=== PATIENT | male | born 1955 | race American Indian/Alaskan Native ===

== ENCOUNTER 2021-03-30 18:27 | Emergency (ER) | payer MEDICAID, MEDICARE ==
[~2021-03-30 18:27] MED LIST: EPINEPHrine 1 MG/10 ML SYRINGE ONE
--- NOTE | 2021-03-30 18:35 | Emergency Department Report ---
ED CPR HPI - General Stated Complaint: CA Time Seen by Provider: 03/30/21 18:31 - History of Present Illness Initial Comments: Patient is a 65-year-old male with a past medical history of hypertension liver failure congestive heart failure who is presenting in cardiac arrest. Patient is a resident of a snf and one of the staff members walked past the room and saw him on the ground. Unknown how long the patient has been on the ground. No pulses were found. Paramedics arrived and intubated the patient with a 7.0 endotracheal tube and CPR and ACLS protocols were initiated. Patient received 3 rounds of epinephrine and sodium bicarb. Blood glucose of 66. Patient in asystole the entire time transport. Patient had approximately 25-minute downtime with paramedics. ED Review of Systems ROS: Stated complaint: CA Other details as noted in HPI Comment: Unobtainable due to pts medical conditions ED Physical Exam - General Limitations: Physical Limitation General appearance: obtunded - Head Head exam: Present: atraumatic, normocephalic - Eye Eye exam: Present: other (Pupils are fixed and dilated) - Neck Neck exam: Present: normal inspection - Respiratory Respiratory exam: Present: other (No spontaneous breath sounds. Lungs are clear with bagging) - Cardiovascular Cardiovascular Exam: Present: other (No spontaneous heart tones) - GI/Abdominal GI/Abdominal exam: Present: soft, distended - Skin Skin exam: Present: other (Mottled skin) ED Medical Decision Making - Medical Decision Making On arrival CPR was continued. Placed on our monitor. Did appear he was in coarse V. fib and he was shocked at 200 J given additional epinephrine. No change in his rhythm. Amplitude was at x1.5 as opposed to x1 which is likely by it was interpreted in the field as asystole. In the event there is no cardiac activity at this time no heart tones. Patient was pronounced at 631pm. Family will be contacted Critical care attestation.: If time is entered above; I have spent that time in minutes in the direct care of this critically ill patient, excluding procedure time. ED Disposition Clinical Impression: Cardiopulmonary arrest Disposition: 20 Is pt being admited?: No Does the pt Need Aspirin: No Condition: Stable Time of Disposition: 18:35
== END 2021-03-31 ==
LOC: ED 18:27
DX: I46.9 Cardiac arrest, cause unspecified (principal)
CPT/HCPCS: 92950; 99285; J0171